=== PATIENT | female | born 1985 | race Caucasian/White ===

== ENCOUNTER 2022-06-13 10:37 | Day surgery (SDC) | payer MEDICARE ==
[2022-06-13] MEDS ORDERED: Depo-Medrol 40 MG/ML IM ONE (10:38)
[2022-06-13] MEDS ORDERED: Marcaine Mpf 0.5% Vial 30 Ml IJ ONE (10:38)
[2022-06-13] MEDS ORDERED: DIPRIVAN 200 MG/20 ML IV ONE (14:18)
[2022-06-13] MEDS ORDERED: Lactated Ringers 1,000 ML IV ONE (15:07)
--- NOTE | 2022-06-13 16:30 | XRAY ---
Indication: Left knee injection. Intraoperative fluoroscopy provided for 10 seconds. Single digital spot image submitted for interpretation demonstrates needle tip projecting over the left femur intercondylar notch. Small amount of contrast injected for needle tip placement. Correlate with intraoperative findings/report.
--- NOTE | 2022-06-13 16:32 | XRAY ---
Indication: Right knee injection. Intraoperative fluoroscopy provided for 6 seconds. Single digital spot image submitted for interpretation demonstrates needle tip projecting over the right femur intercondylar notch. Small amount of contrast injected for needle tip placement. Correlate with intraoperative findings/report.
--- NOTE | 2022-06-13 16:47 | XRAY ---
10 seconds of fluoroscopy was used in surgery for an intra-articular injection of the left knee.
--- NOTE | 2022-06-13 16:48 | XRAY ---
6 seconds of fluoroscopy was used in surgery for an intra-articular injection of the right knee.
== END 2022-06-13 14:42 | disposition home or self-care (01) ==
LOC: SDC-PAIN 10:37
PROVIDERS: ATTEND Psychiatry & Neurology Pain Medicine
DX: M17.0 Bilateral primary osteoarthritis of knee (principal); M70.51 Other bursitis of knee, right knee; M70.52 Other bursitis of knee, left knee; Z79.899 Other long term (current) drug therapy
CPT/HCPCS: 20610; 73560; 77002; J1030; J2704

== ENCOUNTER 2023-12-04 14:25 | Day surgery (SDC) | payer MEDICARE ==
[2023-12-04] MEDS ORDERED: XYLOCAINE-MPF 1% 5ML SDV IJ ONE (14:26)
--- NOTE | 2023-12-05 09:17 | XRAY ---
1 second of fluoroscopy was used in surgery for an attempted right intra-articular knee injection. Patient was unable to tolerate exam. The procedure was cancelled.
== END 2023-12-04 18:13 | disposition home or self-care (01) ==
LOC: SDC-PAIN 14:25
PROVIDERS: ATTEND Psychiatry & Neurology Pain Medicine
DX: Z53.8 Procedure and treatment not carried out for other reasons (principal)
CPT/HCPCS: 77002

== ENCOUNTER 2023-12-11 10:14 | Day surgery (SDC) | payer MEDICARE ==
[2023-12-11] MEDS ORDERED: Depo-Medrol 40 MG/ML IM ONE (10:15)
[2023-12-11] MEDS ORDERED: BUPIVACAINE 0.5% VIAL IJ ONE (10:15)
[2023-12-11] MEDS ORDERED: Versed 2 MG/2 ML Injection ONE (11:47)
[2023-12-11] MEDS ORDERED: DIPRIVAN 200 MG/20 ML IV ONE ×2 (12:57→13:06)
[2023-12-11] MEDS ORDERED: Lactated Ringers 1,000 ML IV ONE (14:09)
--- NOTE | 2023-12-11 15:08 | XRAY ---
6 seconds of fluoroscopy was used in surgery for a right intra-articular knee injection.
--- NOTE | 2023-12-11 15:08 | XRAY ---
Indication: Right knee injection. Intraoperative fluoroscopy provided for 6 seconds. Single digital spot image submitted for interpretation demonstrates needle tip projecting over right femur intercondylar notch. Small amount of contrast injected for needle tip placement. Correlate with intraoperative findings/report.
--- NOTE | 2023-12-11 15:09 | XRAY ---
6 seconds of fluoroscopy was used in surgery for a left intra-articular knee injection.
--- NOTE | 2023-12-11 15:09 | XRAY ---
Indication: Left knee injection. Intraoperative fluoroscopy provided for 6 seconds. Single digital spot image submitted for interpretation demonstrates needle tip projecting over left femur intercondylar notch. Small amount of contrast injected for needle tip placement. Correlate with intraoperative findings/report.
== END 2023-12-11 13:30 | disposition home or self-care (01) ==
LOC: SDC-PAIN 10:14
PROVIDERS: ATTEND Psychiatry & Neurology Pain Medicine
DX: M17.0 Bilateral primary osteoarthritis of knee (principal)
CPT/HCPCS: 20610; 73560; 77002; J1030; J2250; J2704; Q9966

== ENCOUNTER 2024-09-30 09:34 | Day surgery (SDC) | payer MEDICARE ==
[2024-09-30] MEDS ORDERED: Depo-Medrol 40 MG/ML IM ONE (09:35)
[2024-09-30] MEDS ORDERED: BUPIVACAINE 0.5% VIAL IJ ONE (09:35)
[2024-09-30] MEDS ORDERED: DIPRIVAN 200 MG/20 ML IV ONE ×2 (12:41→12:47)
--- NOTE | 2024-09-30 14:21 | XRAY ---
Indication: Right knee injection. Intraoperative fluoroscopy provided for 5 seconds. Single digital spot image submitted for interpretation demonstrates needle tip projecting over right femur intercondylar notch. Small amount of contrast injected for needle tip placement. Correlate with intraoperative findings/report.
--- NOTE | 2024-09-30 14:22 | XRAY ---
Indication: Left knee injection. Intraoperative fluoroscopy provided for 4 seconds. 2 digital spot image submitted for interpretation demonstrates needle tip projecting over left femur intercondylar notch. Small amount of contrast injected for needle tip placement. Correlate with intraoperative findings/report.
--- NOTE | 2024-09-30 14:54 | XRAY ---
5 seconds of fluoroscopy was used in surgery for a right intra-articular knee, pes anserine, and infrapatellar bursa injection.
--- NOTE | 2024-09-30 14:54 | XRAY ---
4 seconds of fluoroscopy was used in surgery for a left intra-articular knee injection.
== END 2024-09-30 13:15 | disposition home or self-care (01) ==
LOC: SDC-PAIN 09:34
PROVIDERS: ATTEND Psychiatry & Neurology Pain Medicine
DX: M17.0 Bilateral primary osteoarthritis of knee (principal)
CPT/HCPCS: 73560; 77002; J2704

== ENCOUNTER 2025-03-10 10:41 | Day surgery (SDC) | payer MEDICARE ==
[2025-03-10] MEDS ORDERED: BUPIVACAINE 0.5% VIAL IJ ONE (10:42)
[2025-03-10] MEDS ORDERED: Depo-Medrol 40 MG/ML IM ONE (10:42)
[2025-03-10] MEDS ORDERED: propofoL IV ONE (13:43)
--- NOTE | 2025-03-10 16:35 | XRAY ---
Indication: Right knee injection. Intraoperative fluoroscopy provided for 7 seconds. Single digital spot image submitted for interpretation demonstrates needle tip projecting over right femur intercondylar notch. Small amount of contrast injected for needle tip placement. Correlate with intraoperative findings/report.
--- NOTE | 2025-03-10 16:35 | XRAY ---
Indication: Left knee injection. Intraoperative fluoroscopy provided for 7 seconds. Single digital spot image submitted for interpretation demonstrates needle tip projecting over left femur intercondylar notch. Small amount of contrast injected for needle tip placement. Correlate with intraoperative findings/report.
--- NOTE | 2025-03-10 16:45 | XRAY ---
7 seconds of fluoroscopy was used in surgery for a right intra-articular knee injection.
--- NOTE | 2025-03-10 16:46 | XRAY ---
7 seconds of fluoroscopy was used in surgery for a left intra-articular knee injection.
== END 2025-03-10 14:10 | disposition home or self-care (01) ==
LOC: SDC-PAIN 10:41
PROVIDERS: ATTEND Psychiatry & Neurology Pain Medicine
DX: M17.0 Bilateral primary osteoarthritis of knee (principal)
CPT/HCPCS: 20610; 73560; 77002; J2704; Q9966